=== PATIENT | female | born 1970 | race Caucasian/White ===

== ENCOUNTER 2019-09-04 07:57 | Outpatient (CLI) | payer OTHER ==
[~2019-09-04 07:57] MED LIST: NAPROXEN SODIU550 MG PO
== END 2019-09-04 08:01 | disposition home or self-care (01) ==
LOC: SONOGRAMA 07:57
DX: E04.1 Nontoxic single thyroid nodule (principal)

== ENCOUNTER 2021-09-03 07:45 | Day surgery (SDC) | payer OTHER | END 2021-09-03 12:30 | disposition home or self-care (01) | LOC: AMB-ENDOS 07:45 | PROVIDERS: ATTEND Surgery | DX: D12.5 Benign neoplasm of sigmoid colon (principal); K64.8 Other hemorrhoids ==

== ENCOUNTER 2023-06-21 08:07 | Outpatient (CLI) | payer OTHER | END 2023-06-21 08:09 | disposition home or self-care (01) | LOC: SONOGRAMA 08:07 | PROVIDERS: ATTEND Pathology Anatomic Pathology & Clinical Pathology | DX: E04.2 Nontoxic multinodular goiter (principal) ==